=== PATIENT | female | born 1940 | race Hispanic/Latino ===

== ENCOUNTER → 2018-04-23 | Outpatient (CLI) | payer MEDICARE ==
[~2018-04-23] MED LIST: AMLO25PO PO; CALC1TAB PO; CLOB30CR5 TP; CYAN50008 SL
== END | disposition home or self-care (01) ==
LOC: RAH 11:40
PROVIDERS: ATTEND Internal Medicine
DX: R05 Cough (principal)
CPT/HCPCS: 71046